=== PATIENT | female | born 1985 | race Caucasian/White ===

== ENCOUNTER 2020-04-14 09:41 | Outpatient (CLI) | payer SELFPAY ==
--- NOTE | 2020-04-14 09:50 | US_ITS ---
WS: [id number] ULTRASOUND PELVIS TECHNIQUE: Transabdominal and transvaginal. ULTRASOUND PELVIS TECHNIQUE: Transabdominal. CLINICAL INFORMATION: MISCARRIAGE/ELEVATED ANDROGENS LMP: : No. COMPARISON: None. FINDINGS: Uterus Orientation: Anteverted. Size: 10.0 cm x 6.0 cm x 4.7 cm. Masses: Intramural hypoechoic fibroid measuring 2.2 x 2.2 x 1.2 cm along the anterior uterus Cervix: Incidental nabothian cysts. Small amount of fluid in the cervix. Endometrium: Normal. Endometrium thickness: 1.3 cm. Adnexa: Left ovarian follicles. Simple right ovarian cyst measuring 2.3 x 2.2 x 2.3 cm Right ovary size: 3.8 cm x 3.2 cm x 3.7 cm. Right ovary volume: 23.4 ccm3. Left ovary size: 3.8 cm x 2.9 cm x 2.7 cm. Left ovary volume: 15.0 ccm3 Free fluid: Small amount of fluid Other findings: None. US/US pelvic with transvaginal IMPRESSION: 1. Normal endometrium measuring 13 mm. 2. Intramural uterine fibroid measuring 2.2 x 2.2 x 1.2 cm 3. Simple right ovarian cyst measuring 2.3 x 2.2 x 2.3 cm 4. Small amount of free fluid in the cul-de-sac.
== END 2020-04-14 09:42 | disposition home or self-care (01) ==
LOC: RAD 09:47
PROVIDERS: PCP Family Medicine; Visit Provider Obstetrics & Gynecology
DX: O03.9 Complete or unspecified spontaneous abortion without complication (principal); E28.1 Androgen excess; N83.291 Other ovarian cyst, right side; D25.1 Intramural leiomyoma of uterus
CPT/HCPCS: 76830; 76856

== ENCOUNTER → 2022-07-19 09:22 | Outpatient (BNVA) | payer OTHER, SELFPAY | PROVIDERS: PCP Family Medicine; Visit Provider Family Medicine | DX: Z34.90 Encounter for supervision of normal pregnancy, unspecified, unspecified trimester (principal) | CPT/HCPCS: 84144; 84702 ==

== ENCOUNTER → 2022-07-26 10:02 | Outpatient (BNVA) | payer OTHER, SELFPAY | PROVIDERS: PCP Family Medicine; Visit Provider Family Medicine | DX: Z34.80 Encounter for supervision of other normal pregnancy, unspecified trimester (principal); R30.0 Dysuria | CPT/HCPCS: 80307; 81025; 84144; 84443; 85025; 86592; 86762; 86803; 86850; 86900; 87086; 87340; 87491; 87591; 87624; 87806 ==

== ENCOUNTER 2022-08-07 14:47 | Outpatient (CLI) | payer OTHER, SELFPAY ==
--- NOTE | 2022-08-07 15:00 | US_ITS ---
WS: [id number] EARLY OBSTETRICAL ULTRASOUND (<14 WEEKS). HISTORY: Dating US - 2 weeks from now COMPARISON: None available. Transvaginal and transabdominal imaging is performed. There are 2 fluid collections along the endometrial canal. One of these collections has decidual reac tion but there is no intrauterine gestation or pole. No yolk sac identified. Gestational sac me asurement of 1.4 cm corresponds to gestation of 6 weeks and 3 days. The adjacent more superior additi onal sac is more elongated without a thick decidual reaction. There is no pole within the secon d sac either. No cardiac activity. Uterus is anteverted. Uterus is very mildly enlarged and bulky in appearance. Cervix is closed.Ovarie s are both identified and appeared normal. There are small peripheral cysts. No free fluid. US/US OB <=14 wk fetus w transvag IMPRESSION: 1. There are 2 adjacent fluid collections along the endometrial canal. Sac wit h decidual reaction measures 1.4 cm corresponding to a gestation of 6 weeks and 3 days. 2. Additional fluid collection along the endometrium is more elongated. This m ay be an adjacent area of hemorrhage or additional gestational sac which is abn ormal. 3. No pole or intrauterine gestation is identified. There is no crown-ru mp length or yolk sac within either sac. Most likely anembryonic gestation. Con flag signalman one week follow-up transvaginal ultrasound.
== END 2022-08-07 14:48 | disposition home or self-care (01) ==
PROVIDERS: PCP Family Medicine; Visit Provider Family Medicine
DX: Z34.81 Encounter for supervision of other normal pregnancy, first trimester (principal); Z3A.01 Less than 8 weeks gestation of pregnancy
CPT/HCPCS: 76801; 76817; 80307; 81025; 84144; 84443; 85025; 86592; 86762; 86803; 86850; 86900; 87086; 87340; 87491; 87591; 87624; 87806

== ENCOUNTER 2022-08-21 09:22 | Outpatient (CLI) | payer OTHER, SELFPAY ==
--- NOTE | 2022-08-21 09:30 | USR_ITS ---
PROCEDURE INFORMATION: Exam: US , Limited Exam date and time: 08/21/2022 9:44 AM Age: 36 years old Clinical indication: Screening exam; Other: Concern for miscarriage; Additional info: 1 week follow up, concern for miscarriage LABS AND CLINICAL REPORTS: Last menstrual period start date: 06/18/2022 Gestational age (Established): 9 w 1 d Estimated due date (Established): 03/25/2023 TECHNIQUE: Imaging protocol: Real-time ultrasound of the maternal uterus with image documentation. Exam focused on the clinical indication. COMPARISON: US OB <=14 wk fetus w transvag 08/07/2022 3:08 PM FINDINGS: Gestation: Two adjacent fluid collections are again seen within the endometrial cavity. One of the collections is again demonstrating decidual reaction but demonstrates no evidence of pole or yolk sac. The gestational sac measures approximally 2.3 cm, corresponding to a gestational age of 7 weeks 4 days. The adjacent irregular fluid collection has decreased in size when compared to prior study, and measures approximally 0.7 cm. There is no pole within this 2nd sac either. No cardiac activity identified. BIOMETRY: Gestational age (AUA): 7 w 4 d. MATERNAL: Uterus: Uterus measures 6.3 cm x 13 cm x 8.8 cm. Right ovary/adnexa: Unremarkable. Left ovary/adnexa: Unremarkable. US/US OB limited [id number] IMPRESSION: 1. Similar imaging findings when compared to prior study performed 2 weeks ago, demonstrating 2 adjacent fluid structures within the endometrial cavity, including a sac with decidual reaction measuring approximally 2.3 cm, corresponding to gestational age of 7 weeks 4 days. 2. Interval decrease in size of 2nd endometrial sac/fluid collection, which may represent subchorionic hematoma. 3. No pole or yolk sac identified in either sac, likely representing anembryonic gestation as previously reported. OBGYN consultation, correlation with serial beta hCG and follow-up ultrasound should be considered.
== END 2022-08-21 09:23 | disposition home or self-care (01) ==
PROVIDERS: PCP Family Medicine; Visit Provider Family Medicine
DX: O28.3 Abnormal ultrasonic finding on antenatal screening of mother (principal); Z3A.01 Less than 8 weeks gestation of pregnancy
CPT/HCPCS: 76815

== ENCOUNTER → 2023-01-17 15:22 | Outpatient (BNVA) | payer OTHER, SELFPAY | PROVIDERS: PCP Family Medicine; Visit Provider Family Medicine | DX: R30.0 Dysuria (principal); N63.23 Unspecified lump in the left breast, lower outer quadrant; F41.9 Anxiety disorder, unspecified | CPT/HCPCS: 87086 ==

== ENCOUNTER 2023-05-23 08:48 | Outpatient (CLI) | payer OTHER, SELFPAY ==
--- NOTE | 2023-05-23 09:06 | MM_ITS ---
WS: [id number] DIAGNOSTIC BILATERAL DIGITAL BREAST TOMOSYNTHESIS MAMMOGRAPHY WITH CAD LEFT breast ultrasound, limited HISTORY: Breast Lump left side @ 4 o'clock position COMPARISON: None available. TECHNIQUE: Bilateral craniocaudad, mediolateral oblique, and mediolateral views are submitted with to mosynthcatalina and SM. Spot compression LEFT CC and MLO. Computer aided detection utilized. Breast composition: There are scattered areas of fibroglandular density. Lobulated solid mass in the central breast near 6:00 is identified. Mass is of predominantly increased density. Questionable smal l amount of fatty component. No distortion. Mass measures 2.8 x 5.3 x 5.1 cm. No calcifications. No a dditional masses within either breast. LEFT breast ultrasound, limited. Very hypoechoic lobulated solid mass noted at 6:00 with the LEFT breast, 2 cm from the nipple. There is increased vascularity within the mass. IMPRESSION: MM/[place] [id number] BI-RADS: 4-Suspicious Finding-Biopsy Should Be Considered FOLLOW UP: Biopsy Recommended Ultrasound-guided biopsy recommended of the LEFT breast mass at 6:00. Notified Davi Irene MD at 05/23/2023 11:05 AM.
--- NOTE | 2023-05-23 09:30 | US_ITS ---
WS: [id number] DIAGNOSTIC BILATERAL DIGITAL BREAST TOMOSYNTHESIS MAMMOGRAPHY WITH CAD LEFT breast ultrasound, limited HISTORY: Breast Lump left side @ 4 o'clock position COMPARISON: None available. TECHNIQUE: Bilateral craniocaudad, mediolateral oblique, and mediolateral views are submitted with to mosynthesis and SM. Spot compression LEFT CC and MLO. Computer aided detection utilized. Breast composition: There are scattered areas of fibroglandular density. Lobulated solid mass in the central breast near 6:00 is identified. Mass is of predominantly increased density. Questionable smal l amount of fatty component. No distortion. Mass measures 2.8 x 5.3 x 5.1 cm. No calcifications. No a dditional masses within either breast. LEFT breast ultrasound, limited. Very hypoechoic lobulated solid mass noted at 6:00 with the LEFT breast, 2 cm from the nipple. There is increased vascularity within the mass. IMPRESSION: US/US breast LT limited* [id number] BI-RADS: 4-Suspicious Finding-Biopsy Should Be Considered FOLLOW UP: Biopsy Recommended Ultrasound-guided biopsy recommended of the LEFT breast mass at 6:00. Notified Davi Irene MD at 05/23/2023 11:05 AM.
== END 2023-05-23 08:49 | disposition home or self-care (01) ==
LOC: RAD 08:48
PROVIDERS: PCP Family Medicine; Visit Provider Family Medicine
DX: N63.23 Unspecified lump in the left breast, lower outer quadrant (principal); N63.25 Unspecified lump in the left breast, overlapping quadrants
CPT/HCPCS: 76642; 77062; G0279

== ENCOUNTER 2023-05-30 13:17 | Outpatient (CLI) | payer OTHER, SELFPAY ==
--- NOTE | 2023-05-30 14:45 | US_ITS ---
WS: [id number] ULTRASOUND-GUIDED LEFT BREAST BIOPSY CLINICAL INFORMATION: Left breast biopsy for mass at 6 o'clock FINDINGS: The procedure including risks, benefits, and complications were discussed with the patient who agreed to proceed. Using sterile technique patient was prepped and draped in the usual sterile fashion. Aft er 1% lidocaine utilizing real-time ultrasound guidance 5 14-gauge cores were obtained of the LEFT br east lesion at the 6 o'clock position. Subsequently a titanium clip was placed in the biopsy cavity. No immediate complications. Pathology demonstrates fragmented fibroepithelial lesion. No atypia or malignancy visualized. IMPRESSION: 1. Uncomplicated ultrasound-guided LEFT breast biopsy. 2. The pathology demonstrates fragmented fibroepithelial lesion. 3. No atypia or malignancy visualized. 4. Recommend breast surgery consultation for excision considering the large size greater than 5 cm a nd risk of undersampling with biopsy. 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 Lisa t recommendations are for giant fibroadenomas to be excised because of their similar appearance to ph yllodes tumor US/[place] [id number] BI-RADS: 3-Probably Benign FOLLOW UP: Surgical Biopsy Recommended Breast surgery consultation recommended for excision
== END 2023-05-30 13:18 | disposition home or self-care (01) ==
LOC: RAD 13:18
PROVIDERS: PCP Family Medicine; Visit Provider Family Medicine
DX: N63.20 Unspecified lump in the left breast, unspecified quadrant (principal); N60.22 Fibroadenosis of left breast
CPT/HCPCS: 19083; 88305